=== PATIENT | female | born 1990 | race American Indian/Alaskan Native ===

== ENCOUNTER 2016-11-30 10:20 | Outpatient (CLI) | payer BC ==
[2016-11-30] MEDS ORDERED: LACTATED RINGERS 500 ML IV ONE (14:00)
== END 2016-11-30 13:08 | disposition home or self-care (01) ==
LOC: LAB 10:20 → TRG 12:37 → LAB 13:08
PROVIDERS: ATTEND Obstetrics & Gynecology
DX: O36.0130 Maternal care for anti-D [Rh] antibodies, third trimester, not applicable or unspecified (principal); Z3A.37 37 weeks gestation of pregnancy
CPT/HCPCS: 86850; 86900; 86901; 96372; J2790

== ENCOUNTER 2016-12-23 04:22 | Inpatient (IN) | payer BC, MEDICAID ==
[2016-12-23] MEDS ORDERED: BRETHINE SUB-Q PRN ×2 (05:42→11:03)
[2016-12-23] MEDS ORDERED: POLYCILLIN/NS 2 GM/100 ML 2 GM/100 ML BAG IV ONE ×2 (05:42→05:44)
[2016-12-23] MEDS ORDERED: XYLOCAINE 2% INFILTRATI ONE (05:42)
[2016-12-23] MEDS ORDERED: ePHEDrine SULFATE IV PRN ×2 (05:42→11:03)
[2016-12-23] MEDS ORDERED: LACTATED RINGERS 1,000 ML ONE (05:44)
--- NOTE | 2016-12-23 05:55 | History and Physical Report ---
History of Present Illness Date of examination: 12/23/16 Date of admission: 12/23/16 05:30 Chief complaint: Labor History of present illness: 26 year old presents to L&D at 40 weeks, 3 days gestation in labor. Patient reports contractions since 11 PM last night; states contractions are now every 5 minutes. She states she had her membranes stripped at her office visit yesterday. Patient denies leaking of fluid. Past History Past Medical History: other (obesity) Past Surgical History: no surgical history [employer] History: herpes (on Valtrex suppression; patient denies lesions or prodromal symptoms) Family/Genetic History: none Social history: lives with family. denies: smoking, alcohol abuse - Obstetrical History Expected Date of Delivery: 12/20/16 Actual Gestation: 40 Week(s) 3 Day(s) : 3 Para: 2 Hx # Term Pregnancies: 3 Number of Pregnancies: 0 Spontaneous Abortions: 0 Induced : 0 Number of Living Children: 2 Medications and Allergies Allergies Allergy/AdvReac Type Severity Reaction Status Date / Time No Known Allergies Allergy Unverified 11/30/16 12:54 Home Medications Medication Instructions Recorded Confirmed Last Taken Type No Known Home Medications [No 12/23/16 12/23/16 Unknown History Reported Home Medications] Active Meds: Active Medications Ephedrine Sulfate (Ephedrine Sulfate) 10 mg IV Q2M PRN PRN Reason: Hypotension Stop: 12/23/16 05:47 Ampicillin Sodium (Polycillin/Ns 2 Gm/100 Ml) 2 gm in 100 mls @ 100 mls/hr IV ONCE ONE PRN Reason: Protocol Stop: 12/23/16 06:41 Lactated Ringer's (Lactated Ringers) 1,000 mls @ 125 mls/hr IV DIRECT KARSON Oxytocin/Sodium Chloride (Pitocin/Ns 20 Unit/1000ml Drip) 20 units in 1,000 mls @ 125 mls/hr IV DIRECT KARSON Ampicillin Sodium (Polycillin/Ns 1 Gm/50 Ml) 1 gm in 50 mls @ 100 mls/hr IV Q4HR KARSON PRN Reason: Protocol Lidocaine (Xylocaine 2%) 20 ml INFILTRATI ONCE ONE Stop: 12/23/16 05:43 Terbutaline Sulfate (Brethine) 0.25 mg SUB-Q ONCE PRN PRN Reason: Hyperstimulation/Hypertonicity Stop: 12/23/16 05:43 Review of Systems All systems: negative (regular contractions since 11 PM last night) Genitourinary: no leakage of fluid, no genital sores - Vital Signs Vital signs: Vital Signs Pulse BP Pulse Ox 114 H 108/65 97 12/23/16 04:43 12/23/16 04:43 12/23/16 04:43 Temp Pulse Resp BP Pulse Ox 98.2 F 94 H 18 118/73 100 12/23/16 05:02 12/23/16 05:42 12/23/16 05:02 12/23/16 05:38 12/23/16 05:42 - Physical Exam Breasts: Positive: deferred Cardiovascular: Regular rate, No murmurs Lungs: Positive: Clear to auscultation Abdomen: Positive: normal appearance, soft. Negative: distention, tenderness, guarding Genitourinary (Female): Positive: normal external genitalia. Negative: perineal /vulvar lesions Uterus: Positive: enlarged. Negative: tender Extremities: Positive: normal. Negative: tenderness - Obstetrical FHR: category 2 (Patient had a late appearing FHR deceleration on monitor shortly after arrival; normal FHR baseline and variability; patient to be admitted with continuous EFM) Uterine Contraction Monitor Mode: External Cervical Dilatation: 4 Cervical Effacement Percentage: 70 station: -1 Uterine Contraction Frequency (min): every 5 minutes Uterine Contraction Pattern: Regular Uterine Contraction Intensity: Moderate Results All other labs normal. Assessment and Plan A: at 40 weeks, 3 days gestation. Category 2 FHR tracing. GBS positive. Labor. P: Admit. GBS prophylaxis. Continuous EFM. Consulted with Dr. Masters regarding FHR tracing.
[2016-12-23] MEDS ORDERED: PITOCin/NS 20 UNIT/1000ML DRIP 20 UNITS/1,000 ML BAG IV SCH (06:00)
[2016-12-23] MEDS ORDERED: LACTATED RINGERS 1,000 ML IV SCH (06:00)
[2016-12-23 07:03] LABS: Hematocrit 35.6 % (30.3-42.9); Mean Corpuscular HGB Conc 34 % (30-34); Mean Corpuscular Hemoglobin 32 pg (28-32); Mean Corpuscular Volume 93 fl (79-97); Red Blood Count 3.82 M/mm3 (3.65-5.03); Red Cell Distribution Width 13.1 % (13.2-15.2)
[2016-12-23] MEDS ORDERED: VALTREX PO SCH (07:30)
[2016-12-23 07:43] LABS: Platelet Count 206 K/mm3 (140-440)
--- NOTE | 2016-12-23 07:48 | Event Note ---
Date: 12/23/16 Patient requests pain medication. SVE 5/-1. FHR baseline 120-125 with moderate variability and accelerations. No decelerations noted. Will order pain medication for patient.
[2016-12-23] MEDS: SUBLIMAZE IV PRN ×2 (08:25→10:39)
[2016-12-23] MEDS ORDERED: POLYCILLIN/NS 1 GM/50 ML 1 GM/50 ML BAG IV SCH (09:49)
--- NOTE | 2016-12-23 10:23 | Event Note ---
Date: 12/23/16 FSE was placed to better trace FHR. Small amount of clear fluid noted upon application of FSE. FHR 120 with moderate variability and no decelerations at this time.
[2016-12-23] MEDS ORDERED: BRETHINE IVP PRN (11:05)
--- NOTE | 2016-12-23 11:15 | Event Note ---
Date: 12/23/16 Patient has received second dose of Ampicillin for GBS prophylaxis. Contractions are spacing; Pitocin augmentation ordered. FHR baseline 120 with moderate variability. Patient is afebrile. Vital signs are stable. Uterus is nontender and palpates soft between contractions. Amniotic fluid is clear. No bleeding noted.
[2016-12-23] MEDS ORDERED: PITOCin/NS 30 UNIT/500ML 30 UNITS/500 ML BAG IV SCH (12:00)
[2016-12-23] MEDS ORDERED: TUCKS PAD TP PRN (12:52)
[2016-12-23] MEDS ORDERED: SODIUM CHLORIDE FLUSH SYRINGE 10 ML IV NR (13:00)
--- NOTE | 2016-12-23 13:08 | Procedure Note ---
OB Delivery Note - Vaginal Delivery presentation: vertex Delivery position: OA Intrapartum events: none Delivery augmentation: rupture of membranes, pitocin Delivery monitor: external FHT, external uterine, internal FHT Route of delivery: Delivery placenta: spontaneous Delivery cord: 3 umbilical vessels Episiotomy: none Delivery laceration: none Anesthesia: none Delivery comments: Spontaneous vaginal delivery of liveborn female OA over intact perineum. No anesthesia. Baby placed immediately on maternal abdomen after delivery; spontaneous cry and respirations. Bulb suctioned. 3 vessel cord double clamped and cut. Spontaneous delivery of intact placenta and membranes by ledesma mechanism. EBL 200 ml. No lacerations noted. Sponge count correct. Baby's weight 7 lb. 1 oz. Apgars 8/9. Mother and baby stable in birthing room.
[2016-12-23] MEDS: MOTRIN PO SCH ×3 (15:59→23:42)
[2016-12-23 16:01] LABS: Hematocrit 33.2 % (30.3-42.9); Hemoglobin 11.6 gm/dl (10.1-14.3); Mean Corpuscular HGB Conc 35 % (30-34); Mean Corpuscular Hemoglobin 32 pg (28-32); Mean Corpuscular Volume 91 fl (79-97); Platelet Count 223 K/mm3 (140-440); Red Blood Count 3.64 M/mm3 (3.65-5.03); Red Cell Distribution Width 12.9 % (13.2-15.2)
[2016-12-23 16:03] LABS: White Blood Count 22.2 K/mm3 (4.5-11.0)
[2016-12-23] MEDS: COLACE PO SCH (21:49)
[2016-12-24] MEDS: MOTRIN PO SCH ×3 (05:32→18:15)
--- NOTE | 2016-12-24 08:53 | Progress Note ---
Assessment and Plan A: day 1 S/P spontaneous vaginal delivery. Patient denies any symptoms of infection. P: Repeat CBC this AM. Urinalysis and urine culture this AM. Subjective - Subjective Date of service: 12/24/16 Principal diagnosis: day 1 S/P spontaneous vaginal delivery Interval history: day 1 S/P spontaneous vaginal delivery on 12/23/16. Patient is doing well. Bottlefeeding. Voiding without difficulty. Ambulating well. Tolerating a regular diet without nausea or vomiting. Patient denies headache, visual disturbance, cough, shortness of breath, chest pain, abdominal pain, leg pain, heavy vaginal bleeding, foul smelling discharge, symptoms of depression, or any other symptoms. Patient is undecided regarding control. Patient reports: appetite normal, voiding normally, pain well controlled, ambulating normally : doing well Objective - Vital Signs Latest vital signs: Vital Signs Temp Pulse Resp BP BP Pulse Ox 12/24/16 01:40 98 F 83 18 91/52 12/23/16 22:00 98.5 F 86 101/55 12/23/16 18:23 98.1 F 102 H 18 91/45 99 12/23/16 14:10 89 141/71 12/23/16 14:05 99 F 88 16 98/68 12/23/16 14:00 98.4 F 20 12/23/16 13:45 88 117/76 12/23/16 13:30 86 113/66 12/23/16 13:15 94 H 117/68 12/23/16 13:00 85 129/98 12/23/16 12:46 81 99 12/23/16 12:45 74 117/58 12/23/16 12:00 90 128/60 12/23/16 11:56 93 H 187/88 12/23/16 11:55 98.2 F 20 12/23/16 10:27 98 H 130/71 Intake and Output 12/23/16 12/24/16 12/24/16 22:59 06:59 14:59 Intake Total 480 360 Output Total 600 Balance -120 360 Intake: Oral 480 Intake, Free Water 360 Output: Urine 600 Void 600 Other: Total, Intake Amount 480 Total, Output Amount 600 # Voids Void 3 - Exam Breasts: Present: deferred Cardiovascular: Present: Regular rate, No murmurs Lungs: Present: Clear to auscultation Abdomen: Present: normal appearance, soft. Absent: distention, tenderness, guarding Uterus: Present: normal, firm, fundal height below umbilicus. Absent: bogginess , tenderness Extremities: Present: normal. Absent: tenderness, edema - Labs Labs: Abnormal lab results 12/23/16 Range/Units 15:36 WBC 22.2 H (4.5-11.0) K/mm3 RBC 3.64 L (3.65-5.03) M/mm3 MCHC 35 H (30-34) % RDW 12.9 L (13.2-15.2) %
[2016-12-24 10:49] LABS: Basophils % (Auto) 0.1 % (0.0-1.8); Eosinophils % (Auto) 0.5 % (0.0-4.3); Hematocrit 29.5 % (30.3-42.9); Hemoglobin 10.1 gm/dl (10.1-14.3); Mean Corpuscular HGB Conc 34 % (30-34); Mean Corpuscular Hemoglobin 32 pg (28-32); Mean Corpuscular Volume 92 fl (79-97); Platelet Count 226 K/mm3 (140-440); Red Cell Distribution Width 13.1 % (13.2-15.2); White Blood Count 14.4 K/mm3 (4.5-11.0)
[2016-12-24 16:42] LABS: Bilirubin,Urine NEG (Negative); Blood,Urine MOD (Negative); Ketones,Urine NEG (Negative); Leukocyte Esterase,Urine MOD (Negative); Mucus,Urine FEW /HPF; Nitrite,Urine NEG (Negative); Protein,Urine <15 mg/dL mg/dL (Negative); Urobilinogen,Urine < 2.0 mg/dL (<2.0)
--- NOTE | 2016-12-24 18:10 | Event Note ---
Date: 12/24/16 Urinalysis shows wbcs. Consulted with Dr. Masters regarding patient and Dr. Masters states to keep patient overnight and start Ampicillin 500 mg po BID. Spoke with patient regarding this and patient states she is in agreement with this plan of care. Patient remains afebrile. Anticipate discharge tomorrow.
[2016-12-24] MEDS: NORCO 5/325 PO PRN (19:52)
[2016-12-24] MEDS: POLYCILLIN PO SCH (21:19)
[2016-12-24] MEDS: COLACE PO SCH (21:20)
[2016-12-25] MEDS: MOTRIN PO SCH ×2 (01:01→16:05)
[2016-12-25] MEDS: NORCO 5/325 PO PRN ×2 (05:33→16:06)
--- NOTE | 2016-12-25 09:01 | Progress Note ---
Assessment and Plan A: PPD #2 - stable P: Discharge home today Will send Amox and Diflucan to Pharm from the office Subjective - Subjective Date of service: 12/25/16 Principal diagnosis: day 2 S/P spontaneous vaginal delivery Patient reports: appetite normal : doing well Objective - Vital Signs Latest vital signs: Vital Signs Temp Pulse Resp BP BP Pulse Ox 12/25/16 00:15 98.2 F 82 18 98/64 12/24/16 16:51 97.5 F L 82 18 100/68 98 Intake and Output 12/24/16 12/25/16 12/25/16 22:59 06:59 14:59 Intake Total 240 Balance 240 Intake: Oral 240 Other: Total, Intake Amount 240 # Voids Void 1 1 - Exam Breasts: Present: deferred, mass Lungs: Present: Clear to auscultation Abdomen: Present: soft Vulva: both: normal Uterus: Present: fundal height below umbilicus Extremities: Present: normal Deep Tendon Reflex Grade: Normal +2 - Labs Labs: Abnormal lab results 12/24/16 12/24/16 Range/Units 10:09 16:15 WBC 14.4 H (4.5-11.0) K/mm3 RBC 3.20 L (3.65-5.03) M/mm3 Hct 29.5 L (30.3-42.9) % RDW 13.1 L (13.2-15.2) % [place] # 0.9 H (0.0-0.8) K/mm3 Seg Neutrophils % 79.3 H (40.0-70.0) % Seg Neutrophils # 11.4 H (1.8-7.7) K/mm3 Urine WBC (Auto) 23.0 H (0.0-6.0) /HPF
--- NOTE | 2016-12-25 09:02 | Discharge Summary ---
Providers - Providers Date of Admission: 12/23/16 05:30 Date of discharge: 12/25/16 Attending physician: MISAEL ROOT MD Primary care physician: MISAEL ROOT MD Hospitalization Reason for admission: active labor Delivery: Episiotomy: none Laceration: none Other procedures: none complications: none Discharge diagnosis: IUP at term delivered [place] baby: female Condition at discharge: Good Disposition: DC-30 STILL A PATIENT Plan - Provider Discharge Summary Activity: routine, no sex for 6 weeks, no strenuous exercise Diet: routine Instructions: routine Additional instructions: [] Smoking cessation referral if applicable(refer to patient education folder for contact #) [] Refer to [facility] Booklet Call your doctor immediately for: * Fever > 100.5 * Heavy vaginal bleeding ( >1 pad per hour) * Severe persistent headache * Shortness of breath * Reddened, hot, painful area to leg or breast * Drainage or odor from incision. * Keep incision clean and dry at all times and follow doctor's instructions regarding bathing/showering - Follow up plan Follow up: MISAEL ROOT MD [Primary Care Provider] - 6 Weeks
[2016-12-25] MEDS: POLYCILLIN PO SCH (11:27)
[2016-12-25 17:12] VITALS: BP 90/52
== END 2016-12-25 16:50 | disposition home or self-care (01) | DRG 774 ==
LOC: TRG 04:22 → LD 05:30 → OB 14:23
PROVIDERS: ADMIT Obstetrics & Gynecology; ATTEND Obstetrics & Gynecology
PROC: 10E0XZZ Delivery of Products of Conception, External Approach (ICD-10-PCS; principal; 2016-12-23)
PROC: 3E0334Z Introduction of Serum, Toxoid and Vaccine into Peripheral Vein, Percutaneous Approach (ICD-10-PCS; 2016-12-23)
DX: O76 Abnormality in fetal heart rate and rhythm complicating labor and delivery (principal); O98.52 Other viral diseases complicating childbirth; Z68.41 Body mass index [BMI] 40.0-44.9, adult; O99.824 Streptococcus B carrier state complicating childbirth; O99.214 Obesity complicating childbirth; E66.9 Obesity, unspecified; Z3A.40 40 weeks gestation of pregnancy; Z37.0 Single live birth; B00.9 Herpesviral infection, unspecified; Z79.899 Other long term (current) drug therapy
CPT/HCPCS: 36415; 81001; 85025; 85027; 85461; 86850; 86900; 86901; 87086; J0290; J2590; J2790; J3010; J7120